=== PATIENT | male | born 1995 | race Two or more races ===

== ENCOUNTER 2017-12-24 12:12 | Emergency (ER) | payer SELFPAY ==
[2017-12-24 12:42] VITALS: O2SAT 98
--- NOTE | 2017-12-24 15:06 | ED PDOC ---
HPI: Psych/Substance Abuse Time Seen by Provider: 12/24/17 12:29 Chief Complaint (Nursing): Psychiatric Evaluation Past Medical History Vital Signs: Last Vital Signs Temp 99.4 F 12/24/17 12:42 Pulse 100 H 12/24/17 14:25 Resp 22 12/24/17 12:42 BP 130/75 12/24/17 12:42 Pulse Ox 98 12/24/17 12:42 - Allergies Allergies/Adverse Reactions: Allergies Allergy/AdvReac Type Severity Reaction Status Date / Time No Known Allergies Allergy Verified 12/24/17 12:42 - ECG O2 Sat by Pulse Oximetry: 98 Medical Decision Making Medical Decision Making: Plan : - CT head - CXR - Crisis evaluation Patient is refusing CT and CXR, he is calm and cooperative at this time, 4 point restraints removed. Patient seen and evaluated by crisis. After crisis evaluation, plan will be for outpatient psych follow up as per Dr. Collier with Dx of bipolar d/o. On re-evaluation, patient denies any headache, dizziness, nausea, chest pain or SOB. On exam, patient remains AAOx3, in no acute distress. Still is refusing CT and CXR, states that he will get a huge bill and doesn't want to get a study he thinks he doesn't need and doesn't want to pay for. Benefits of CT and CXR explained to the patient, which he verbalize understanding of, however he is still refusing. Patient refuses further care, evaluation or treatment in the ER. Patient informed of the reasons for the following and planned treatment, which patient understands, however still refuses. Patient informed of the risk and benefits of treatment. Informed that the risk could include worsening of current conditions, undiagnosed conditions, disability or even . Patient understands the following risk and the benefits of treatment. Patient has the capacity to make decisions and still refuses treatment by RN, PA and ER MD. Patient encouraged to return to the ER at any time and to follow up with pmd. Disposition - Clinical Impression Clinical Impression: Head injury, Bipolar disorder - Patient ED Disposition Is Patient to be Admitted: No Counseled Patient/Family Regarding: Diagnosis, Need For Followup - Disposition Disposition: Against Medical Advice Disposition Time: 15:00 Condition: STABLE Additional Instructions: Thank you for letting us take care of you today. You were treated for head injury, bipolar d/o. You are choosing to leave against medical advice. The emergency medical care you received today was directed towards the acute presenting symptoms. Return to the Emergency Department at any time if symptoms worsen, do not improve, or if any other problems arise. Please contact your doctor in 2 days for re-evaluation and follow up / or call one of the physicians/clinics you have been referred to that are listed on the Patient Visit Information form that is included in your discharge packet. Bring any paperwork you were given at discharge with you along with any medications to your follow up visit. Our treatment cannot replace ongoing medical care by a primary care provider (PCP) outside of the emergency department. Thank you for allowing the [facility] team to be part of your care today. Instructions: Closed Head Injury (DC), Bipolar Disorder (DC), Leaving Against Medical Advice Forms: [employer] (Nepalese) - PA / HONE OPERATOR / Resident Statement MD/DO has reviewed & agrees with the documentation as recorded.
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
[2017-12-24 16:17] VITALS: BP 147/75; PULSE 98; RESP 17; TEMP 97.7
== END 2017-12-24 15:27 | disposition left against medical advice (07) ==
LOC: H.ER 12:12
DX: S09.90XA Unspecified injury of head, initial encounter (principal); F31.9 Bipolar disorder, unspecified; Z00.8 Encounter for other general examination